=== PATIENT | female | born 1960 | race Caucasian/White ===

== ENCOUNTER 2024-07-11 22:59 | Emergency (ER) | payer BC, SELFPAY ==
[2024-07-11 23:02] VITALS: BP 122/74
--- NOTE | 2024-07-12 02:25 | ED.GENMED ---
History of Present Illness
General
Chief Complaint: Fall
Time Seen by Provider: 07/12/24 02:07
History of Present Illness
History of Present Illness:
TIME OF INITIAL ENCOUNTER: 2:15 AM
HPI: The patient was walking and tripped on a curb. She struck the right side of her face leading to a small laceration. She came in because she was concerned of the possibility of need for stitches. She also had a minor injury to the right wrist
at the ulnar styloid region and some minimal discomfort to the knees. She has been walking without difficulty. She takes no anticoagulation or antiplatelets. Her tetanus status is up-to-date.
EXAM:
GENERAL: Well appearing in no distress
CERVICAL SPINE: No midline c-spine tenderness with excellent AROM
HEAD: She has a 3 cm very superficial curvilinear laceration to the inferolateral aspect of the right orbit with associated soft tissue swelling there is no scalp hematoma
CHEST: No chest wall tenderness, normal heart sounds
LUNGS: Equal lung sounds, no respiratory distress
ABDOMEN: No abdominal tenderness, no peritoneal signs
EXTREMITIES: Normal active range of motion, no tenderness, minimal tenderness to palpation at the ulnar styloid region of the right wrist, paronychia noted to the left index finger which is mild
NEURO: Excellent strength all extremities, appropriate mental status, normal speech/language
NUMBER AND COMPLEXITY OF PROBLEMS ADDRESSED AT THE ENCOUNTER
� Chronic conditions affecting care: Has had a cardiac ablation in the past
� Acute Exacerbation and/or Progression of Chronic Illness: This is an acute problem
� Differential Diagnosis includes: Doubt serious head injury as she has excellent neurologic status and the point of impact was at and below the level of the eyes, paronychia, doubt wrist fracture based on physical examination
AMOUNT AND/OR COMPLEXITY OF DATA TO BE REVIEWED AND ANALYZED
� I performed an independent evaluation of and my interpretation is:
EKG:
CT:
X-rays:
Laboratory Studies:
Other:
� Review of other/old records: no old records available for review
� Clinical information was obtained by an independent historian: I spoke to the at bedside
� Prescriptions/Medications Considered but not given:
� Further testing considered but not performed: Considered imaging of the right wrist however based on physical examination she has no significant bony tenderness, considered CT of the brain however the patient has no headache
and has a normal neurologic examination and is not on any antiplatelets or anticoagulation
RISK OF COMPLICATIONS AND/OR MORBIDITY OR MORTALITY OF PATIENT MANAGEMENT
� Social determinants of health affecting care: Lives at home
� Discussion with other providers:
� Escalation of care including admission/observation vs risk of discharge considered: Steri-Strips were placed after the wound was cleaned with saline. I also attempted to incise the paronychia at the cuticle however there is no
purulent drainage noted�placed on antibiotics
ANY OTHER UPDATES:
Phy Exam
Physical Exam
Physical Exam:
See HPI
Course
Orders/Labs/Results
Orders:
Orders
07/12/24 02:23
Cephalexin Monohydrate [Keflex] 500 mg PO NOW STA
Vital Signs
Initial and Last Documented VS:
Initial Vital Signs
Temp Pulse Resp BP Pulse Ox
36.9 C 60 16 122/74 96
07/11/24 23:02 07/11/24 23:02 07/11/24 23:02 07/11/24 23:02 07/11/24 23:02
Last Documented Vital Signs
Temp Pulse Resp BP Pulse Ox
36.9 C 60 16 122/74 96
07/11/24 23:02 07/11/24 23:02 07/11/24 23:02 07/11/24 23:02 07/11/24 23:02
Procedures
Laceration Closure
Right Face:
Status of Wound: clean
Size of Wound in cm: 3
Description of Wound Edges: sharp
Preparation: cleaned with saline
Wound exploration: explored to base- no FB
Additional information:
For 1/8 inch Steri-Strips were used
*Critical Care Note
Total Time (30-74mins, 75-104mins- exclusive of procedures): Not Applicable
ED Attending Note
-
Portions of this chart may have been created with voice recognition software.� Occasional wrong word or��sound alike� substitutions may have occurred due to the inherent limitations of voice recognition software.
Discharge Plan
Departure
Patient Disposition: Home (Routine Discharge)
Date of Disposition: 07/12/24
Time of Disposition: :24
Patient with high blood pressure during this ER visit?: Yes
Discharge Problem:
Laceration of face
Instructions: Preventing falls in adults, BLOOD PRESSURE
Prescriptions:
New
cephalexin 500 mg tablet
500 mg PO TID Qty: 21 0RF
Referrals:
Anthony Angelo DO [Family Provider] -
Activity Restrictions/Additional Instructions:
I placed Steri-Strips to the affected area. This will fall off over the next few days. Use ice to the swollen area several times a day. Regarding the paronychia of the left second digit, use warm compresses. I also sent a prescription for
antibiotics to your pharmacy.
Interventions
Interventions:
*Risk Screen - Suicide Last Done: 07/11/24 23:02
*General Assessment Last Done: 07/11/24 23:02
*Neglect/Abuse Screening Last Done: 07/11/24 23:02
ED- Fall Risk Assessment Last Done: 07/12/24 02:22
*ED COVID-19 Vaccine History Last Done: 07/12/24 02:22
ED- Neurological Assessment Last Done: 07/12/24 02:22
ED-Skin Assessment Last Done: 07/12/24 02:22
Discharge Date and Time
Print Language: [id number]
[2024-07-12] MEDS: KEFLEX 500 MG PO (02:31)
[2024-07-12 02:34] VITALS: BP 128/82
== END 2024-07-12 02:41 | disposition home or self-care (01) ==
LOC: EMR 22:59
PROVIDERS: EMERGENCY PHYSICIAN Emergency Medicine; FAMILY PHYSICIAN Family Medicine
DX: S01.81XA Laceration without foreign body of other part of head, initial encounter (principal); W01.0XXA Fall on same level from slipping, tripping and stumbling without subsequent striking against object, initial encounter; Y93.01 Activity, walking, marching and hiking
CPT/HCPCS: 99282